=== PATIENT | female | born 1990 ===

== ENCOUNTER → 2017-10-30 | Outpatient (CLI) | payer OTHER | END | disposition home or self-care (01) | LOC: LAB 17:46 | DX: N39.0 Urinary tract infection, site not specified (principal) | CPT/HCPCS: 87086 ==

== ENCOUNTER → 2018-03-27 | Outpatient (CLI) | payer OTHER | LOC: LAB SHORT 16:32 → LAB 16:32 | DX: N39.0 Urinary tract infection, site not specified (principal); R30.0 Dysuria | CPT/HCPCS: 87086 ==

== ENCOUNTER → 2018-10-08 | Outpatient (CLI) | payer SELFPAY | END | disposition home or self-care (01) | LOC: LAB SHORT 15:26 → LAB 15:26 | DX: R30.0 Dysuria (principal) | CPT/HCPCS: 87086 ==

== ENCOUNTER → 2019-07-06 | Outpatient (CLI) | payer BC ==
[2019-07-07 11:15] LABS: Candida species (DNA Probe) Negative (NEGATIVE); G. vaginalis (DNA Probe) Negative (NEGATIVE); T. vaginalis (DNA Probe) Negative (NEGATIVE)
[2019-07-08 21:06] LABS: CHLAMYDIA TRACHOMATIS, NAA Negative (Negative); NEISSERIA GONORRHOEAE, NAA Negative (Negative)
== END | disposition home or self-care (01) ==
LOC: LAB SHORT 19:26 → LAB 19:26
PROVIDERS: Physician Assistant
DX: N72 Inflammatory disease of cervix uteri (principal)
CPT/HCPCS: 87480; 87491; 87510; 87591; 87660

== ENCOUNTER → 2019-07-07 | Outpatient (CLI) | payer BC ==
[2019-07-09 00:06] LABS: HIV SCREEN 4TH GENERATION WRFX Non Reactive (Non Reactive)
[2019-07-09 01:06] LABS: HBSAG SCREEN Negative (Negative); HEP A AB, IGM Negative (Negative); HEP B CORE AB, IGM Negative (Negative); HEP C VIRUS AB <0.1 (0.0-0.9)
== END | disposition home or self-care (01) ==
LOC: LAB SHORT 16:23 → LAB 16:23
PROVIDERS: Physician Assistant
DX: N72 Inflammatory disease of cervix uteri (principal)
CPT/HCPCS: 80074; 86592; 87389

== ENCOUNTER → 2019-10-12 | Outpatient (CLI) | payer BC ==
[2019-10-12 19:42] LABS: Candida species (DNA Probe) Negative (NEGATIVE); G. vaginalis (DNA Probe) Positive (NEGATIVE); T. vaginalis (DNA Probe) Negative (NEGATIVE)
[2019-10-14 01:06] LABS: HIV SCREEN 4TH GENERATION WRFX Non Reactive (Non Reactive)
[2019-10-14 02:06] LABS: HBSAG SCREEN Negative (Negative); HEP A AB, IGM Negative (Negative); HEP B CORE AB, IGM Negative (Negative); HEP C VIRUS AB <0.1 (0.0-0.9)
[2019-10-16 23:06] LABS: CHLAMYDIA TRACHOMATIS, NAA Negative (Negative); NEISSERIA GONORRHOEAE, NAA Negative (Negative)
== END ==
LOC: LAB SHORT 14:45 → LAB 14:45
PROVIDERS: Physician Assistant
DX: N72 Inflammatory disease of cervix uteri (principal)
CPT/HCPCS: 80074; 86592; 87389; 87480; 87491; 87510; 87591; 87660

== ENCOUNTER → 2020-07-15 | Outpatient (CLI) | payer BC ==
[2020-07-15 13:53] LABS: Appearance, Urine Clear (Clear); Bilirubin, Urine Neg (Neg); Blood, Urine 2+ (Neg); Color, Urine Yellow (P-Yellow); Glucose Qualitative, Urine Neg (Neg); Ketones, Urine Neg (Neg); Leukocyte Esterase, Urine Neg (Neg); Nitrite, Urine Neg (Neg); Protein, Urine Neg (Neg); Urobilinogen, Urine NORM (Normal); pH, Urine 6.5 (5.0-8.0)
[2020-07-15 14:45] LABS: White Blood Cells, Urine 0-2 /hpf (0-5)
[2020-07-15 14:46] LABS: Bacteria Rare /hpf; Squamous Epithelial Cells Rare /hpf (Few)
[2020-07-16 06:25] LABS: Candida species (DNA Probe) Negative (NEGATIVE); G. vaginalis (DNA Probe) Positive (NEGATIVE); T. vaginalis (DNA Probe) Negative (NEGATIVE)
[2020-07-16 09:11] LABS: HBSAG SCREEN Negative (Negative); HIV SCREEN 4TH GENERATION WRFX Non Reactive (Non Reactive)
[2020-07-18 15:09] LABS: CHLAMYDIA TRACHOMATIS, NAA Negative (Negative); HPV 16 Negative (Negative); HPV 18 Negative (Negative); HPV OTHER HR TYPES Negative (Negative); NEISSERIA GONORRHOEAE, NAA Negative (Negative)
== END | disposition home or self-care (01) ==
LOC: LAB 09:50 → LAB SHORT 09:50
PROVIDERS: Advanced Practice Midwife
DX: Z01.419 Encounter for gynecological examination (general) (routine) without abnormal findings (principal); Z11.3 Encounter for screening for infections with a predominantly sexual mode of transmission; N76.0 Acute vaginitis; Z87.440 Personal history of urinary (tract) infections
CPT/HCPCS: 81001; 86592; 87340; 87389; 87480; 87491; 87510; 87591; 87624; 87660; G0123

== ENCOUNTER → 2022-03-22 | Outpatient (CLI) | payer BC ==
[2022-03-22 10:11] LABS: Source, Urine Clean Catch
[2022-03-22 11:17] LABS: Appearance, Urine Cloudy (Clear); Bilirubin, Urine Neg (Neg); Blood, Urine 2+ (Neg); Color, Urine Yellow (P-Yellow); Glucose Qualitative, Urine Neg (Neg); Ketones, Urine Neg (Neg); Leukocyte Esterase, Urine 3+ (Neg); Nitrite, Urine Neg (Neg); Protein, Urine 1+ (Neg); Urobilinogen, Urine NORM (Normal)
[2022-03-22 11:46] LABS: Bacteria Few /hpf; Squamous Epithelial Cells Few /hpf (Few); White Blood Cells, Urine Rare /hpf (0-5)
== END | disposition home or self-care (01) ==
LOC: LAB 08:44 → LAB SHORT 08:44
PROVIDERS: Advanced Practice Midwife
DX: R35.0 Frequency of micturition (principal)
CPT/HCPCS: 81001; 87077; 87086; 87186

== ENCOUNTER → 2024-08-18 | Outpatient (CLI) | payer BC ==
[2024-08-28 18:42] LABS: HPV HIGH RISK BY TMA Not Detected; HPV SOURCE Cervical
== END ==
LOC: LAB 16:19 → LAB SHORT 16:19
PROVIDERS: Advanced Practice Midwife
DX: Z01.419 Encounter for gynecological examination (general) (routine) without abnormal findings (principal)
CPT/HCPCS: 87624; G0123

== ENCOUNTER → 2024-12-28 | Outpatient (CLI) | payer BC | END | disposition home or self-care (01) | LOC: LAB SHORT 11:53 → LAB 11:53 | DX: R30.0 Dysuria (principal); R10.9 Unspecified abdominal pain; M54.50 Low back pain, unspecified | CPT/HCPCS: 84702; 87077; 87086; 87186 ==